=== PATIENT | female | born 1980 | race Caucasian/White ===

== ENCOUNTER 2016-04-02 13:09 | Emergency (ER) | payer SELFPAY ==
[~2016-04-02] VITALS: Ht 157.5 cm; Wt 65.4 kg
[2016-04-02 13:23] VITALS: BP 111/70; PULSE 77; RESP 18; TEMP 99.4; O2SAT 99
[2016-04-02] MEDS ORDERED: SODIUM CHLOR 0.9% 1000 ML INJ 1,000 ML IV SCH (14:24)
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
[2016-04-02] MEDS ORDERED: METOCLOPRAMIDE HCL 10 MG/2 ML VIAL IV PUSH ONE (14:30)
[2016-04-02] MEDS ORDERED: SODIUM CHLORIDE 0.9% FLUSH 5 ML FLUSH IVF PRN (14:30)
[2016-04-02] MEDS ORDERED: ACETAMINOPHEN/HYDROcodone 325 MG/5 MG TAB PO ONE (14:30)
[2016-04-02 14:54] LABS: BLOOD, URINE NEG (NEG); GLUCOSE,URINE NEG (NEG); NITRITE,URINE NEG (NEG); PH, URINE 6.5 (5.0-8.5)
[2016-04-02 14:56] LABS: KETONE, URINE 80 OR GREATER mg/dL (NEG); METHOD OF COLLECTION CLEAN CATCH; URINE COLOR YELLOW (YELLW/STRAW)
[2016-04-02 14:57] LABS: BASOPHIL # 0.2 TH/MM3 (0-0.2); BASOPHIL % 1.4 % (0.0-2.0); EOSINOPHIL # 0.3 TH/MM3 (0-0.4); EOSINOPHIL % 2.3 % (0.0-4.0); HEMATOCRIT 41.5 % (35.0-46.0); HEMO FLAGS DIFF FINAL; LYMPH % 23.1 % (9.0-44.0); LYMPHOCYTE # 2.7 TH/MM3 (1.0-4.8); MEAN CELL VOLUME 93.9 FL (80.0-100.0); MONO % 3.3 % (0.0-8.0); NEUT % 69.9 % (16.0-70.0); PLATELET COUNT 376 TH/MM3 (150-450); RED BLOOD COUNT 4.41 MIL/MM3 (4.00-5.30); RED CELL DISTRIBUTION WIDTH 14.4 % (11.6-17.2); WHITE BLOOD COUNT 11.6 TH/MM3 (4.0-11.0)
[2016-04-02 14:59] LABS: BACTERIA, URINE OCC /hpf; COMMENT (UR) CULT NOT INDICATED; CULTURE IF INDICATED CULT NOT INDICATED; MUCUS URINE FEW /lpf (OCC); SQUAMOUS EPITHELIAL CELL URINE > 8 /hpf (0-5); WBC, URINE 0-2 /hpf (0-5)
[2016-04-02 15:04] LABS: CHLORIDE 107 MEQ/L (98-107); POTASSIUM 3.9 MEQ/L (3.5-5.1); SODIUM (NA) 142 MEQ/L (136-145)
[2016-04-02 15:08] LABS: ANION GAP 7 MEQ/L (5-15); BICARBONATE 28.3 MEQ/L (21.0-32.0); BLOOD UREA NITROGEN 11 MG/DL (7-18)
[2016-04-02 15:11] LABS: ALT (GPT) 9 U/L (10-53); AST (GOT) 10 U/L (15-37); GLOMERULAR FILTRATION RATE 89 ML/MIN (>89)
[2016-04-02 15:13] LABS: TOTAL BILIRUBIN ADULT 0.3 MG/DL (0.2-1.0)
[2016-04-02 15:14] LABS: ALKALINE PHOSPHATASE 64 U/L (45-117)
[2016-04-02] MEDS ORDERED: REGL10TA5 PO (15:31)
[2016-04-02] MEDS ORDERED: HYDR-3533 PO (15:31)
[2016-04-02] MEDS ORDERED: CLIN1CAP5 PO (15:31)
[2016-04-02 15:44] VITALS: BP 136/90
== END 2016-04-02 15:45 | disposition home or self-care (01) ==
LOC: PHED 13:09 → PHEFT 15:45
DX: K04.7 Periapical abscess without sinus (principal); K52.9 Noninfective gastroenteritis and colitis, unspecified; D72.829 Elevated white blood cell count, unspecified; D64.9 Anemia, unspecified; J45.909 Unspecified asthma, uncomplicated; F41.8 Other specified anxiety disorders; F17.210 Nicotine dependence, cigarettes, uncomplicated; F19.10 Other psychoactive substance abuse, uncomplicated
CPT/HCPCS: 80053; 81001; 83690; 84703; 85025; 96361; 96374; 99284; J2765; J7030

== ENCOUNTER 2016-05-16 17:08 | Emergency (ER) | payer SELFPAY ==
[~2016-05-16] VITALS: Ht 157.5 cm; Wt 61.5 kg
[~2016-05-16 17:08] MED LIST: CLIN1CAP5 PO; HYDR-3533 PO; REGL10TA5 PO
[2016-05-16 17:17] VITALS: BP 110/81; PULSE 87; RESP 18; TEMP 98.8; O2SAT 96
[2016-05-16] MEDS ORDERED: DEXAMETHASONE SOD PHOS 20 MG/5 ML VIAL IM ONE (17:45)
[2016-05-16] MEDS ORDERED: AMPICILLIN-SULBACTAM INJ 3 GM VIAL IM ONE (17:45)
[2016-05-16] MEDS ORDERED: HYDROmorphone HCL PF 1 MG/ML VIAL IM ONE (17:45)
[2016-05-16] MEDS ORDERED: AUGM875T PO (18:00)
[2016-05-16] MEDS ORDERED: HYDROmorphone HCL PF 1 MG/ML VIAL IV PUSH ONE (18:00)
[2016-05-16] MEDS ORDERED: AMPICILLIN-SULBACTAM INJ 3 GM in SODIUM CHLORIDE 0.9% INJ 100 ML IV ONE (18:00)
[2016-05-16] MEDS ORDERED: HYDR-3533 PO (18:00)
[2016-05-16] MEDS ORDERED: DEXAMETHASONE SOD PHOS 20 MG/5 ML VIAL IV PUSH ONE (18:00)
[2016-05-16] MEDS ORDERED: NAPR500 PO (18:00)
--- NOTE | 2016-05-16 18:01 | PD ---
HPI Chief Complaint: Oral / Dental Pain or Problem Time Seen by Provider: 17:42 Travel History International Travel<30 days: No Contact w/Intl Traveler<30days: No Traveled to known affect area: No History of Present Illness HPI So 35-year-old woman who presents to the emergency department complaining of severe right sided facial pain and swelling. She's had bad teeth for a while. She recently completed a course of clindamycin of resolution of previous similar symptoms a couple weeks ago. Starting yesterday and into today symptoms recurred with pain and swelling on the right side of face, some chills , worsening Today. Pain with swallowing. No other complaints. History Past Medical History Medical History: Denies Significant Hx Tetanus Vaccination: < 5 Years LMP: 05/15/16 : 2 Para: 1 Social History Alcohol Use: Yes (OCCASIONAL) Tobacco Use: Yes (AZUCENA 1 PACK A DAY ) Allergies-Medications (Allergen,Severity, Reaction): Coded Allergies: Prozac (Verified Allergy, Severe, HIVES, 05/16/16) Zofran (Verified Allergy, Severe, 05/16/16) Ibuprofen (Verified Allergy, Mild, Rash, 05/16/16) Reported Meds & Prescriptions Reported Meds & Active Scripts Active Lortab (Hydrocodone-Acetaminophen) 5-325 Mg Tab 1 Tab PO Q6H PRN Reglan (Metoclopramide HCl) 10 Mg Tab 10 Mg PO TIDAC PRN 3 Days Review of Systems Except as stated in HPI: all other systems reviewed are Neg Physical Exam Narrative Gen.: Well-appearing 35 year-old woman, uncomfortable but nontoxic HEENT: Obvious facial swelling along the right mandible. She has exquisite tenderness, and pain with palpation. There is no obvious fluctuance. There is no purulent drainage. There is obvious decay of the second molar on the bottom right. There is tenderness to percussion. There is no obvious fullness in the floor the mouth or evidence of submental fullness or induration. Data Data Last Documented VS Vital Signs Date Time Temp Pulse Resp B/P Pulse Ox O2 Delivery O2 Flow Rate FiO2 05/16/16 17:17 98.8 87 18 110/81 96 Orders Ampicillin-Sulbactam Inj (Unasyn Inj) (05/16/16 17:45) Hydromorphone Pf Inj (Dilaudid Pf Inj) (05/16/16 17:45) Dexamethasone Inj (Decadron Inj) (05/16/16 17:45) MDM Medical Decision Making Medical Screen Exam Complete: Yes Emergency Medical Condition: Yes Differential Diagnosis Facial saline's, odontogenic infection, abscess, ostomy myelitis, other Narrative Course Medical decision making Is a 34 year-old woman was evidence of odontogenic infection, we'll give IV antibiotics, steroids, pain control, we'll need to see a dentist for tooth extraction. If symptoms are not improving she'll need CT imaging. She is agreeable to returning for any worsening symptoms. Continue medications. Diagnosis Primary Impression: Facial cellulitis Additional Instructions: Take Naprosyn as prescribed. Take Lortab as prescribed as needed for pain. Take Augmentin as prescribed. Follow-up with a dentist for further evaluation of dental extraction. Med/Other Pt SpecificInfo: Prescription(s) given Scripts Naproxen (Naprosyn)500 Mg Iss114 Mg PO BID PRN (PAIN SCALE 1 TO 10) #20 TAB Prov:Pelon Fernandes MD 05/16/16 Hydrocodone-Acetaminophen (Lortab)5-325 Mg Tab1-2 Tab PO Q6H PRN (PAIN) #20 TAB Prov:Pelon Fernandes MD 05/16/16 Amoxicillin-Clavulanate (Augmentin)875-125 mg Szl685 Mg PO BID 7 Days not for use in CrCl <30 ml/min. Prov:Pelon Fernandes MD 05/16/16 Disposition: 01 DISCHARGE HOME Condition: Stable Pelon Fernandes MD May 16, 2016 18:01
[2016-05-16] MEDS ORDERED: PROMETHAZINE INJ 25 MG/ML VIAL IM ONE (18:30)
[2016-05-16] MEDS ORDERED: METOCLOPRAMIDE HCL 10 MG/2 ML VIAL IV PUSH ONE (18:30)
[2016-05-16 18:32] VITALS: RESP 18
== END 2016-05-16 19:44 | disposition home or self-care (01) ==
LOC: PHEFT 17:08
DX: L03.211 Cellulitis of face (principal); F17.210 Nicotine dependence, cigarettes, uncomplicated
CPT/HCPCS: 96365; 96375; 99282; J0295; J1100; J1170; J2765

== ENCOUNTER 2016-05-31 17:38 | Emergency (ER) | payer OTHER ==
[~2016-05-31] VITALS: Ht 154.9 cm; Wt 61.5 kg
[~2016-05-31 17:38] MED LIST changes: +AUGM875T PO; -CLIN1CAP5 PO; +NAPR500 PO
[2016-05-31 17:55] VITALS: BP 135/89; PULSE 100; RESP 18; TEMP 98.4; O2SAT 100
[2016-05-31] MEDS ORDERED: ACETAMINOPHEN/HYDROcodone 325 MG/5 MG TAB PO ONE (18:00)
[2016-05-31] MEDS ORDERED: LIDOCAINE 1%/EPINEPHrine 1:100,000 SOLN 20 ML VIAL INFIL ONE (18:00)
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
--- NOTE | 2016-05-31 19:15 | PD ---
Physical Exam Date Seen by Provider: May 31, 2016 Time Seen by Provider: 19:13 Narrative accepted in transfer of care from Dr Fernandes; GCS 15; patient ambulatory to the restroom. GENERAL: Well-developed well-nourished female in no acute distress no respiratory distress; GCS 15 SKIN: Warm and dry. HEAD: Normocephalic. Posterior occiput scalp laceration s/p repair EYES: No scleral icterus. No injection or drainage. NECK: Supple, trachea midline. No JVD or lymphadenopathy. CARDIOVASCULAR: Regular rate and rhythm without murmurs, gallops, or rubs. RESPIRATORY: Breath sounds equal bilaterally. No accessory muscle use. GASTROINTESTINAL: Abdomen soft, mild tenderness to palpation without guarding or rebound ecchymosis or abrasion or laceration, nondistended. MUSCULOSKELETAL: No cyanosis, or edema. BACK: Nontender without obvious deformity. No CVA tenderness. Data Data Last Documented VS Vital Signs Date Time Temp Pulse Resp B/P Pulse Ox O2 Delivery O2 Flow Rate FiO2 05/31/16 20:39 74 18 116/74 97 Room Air 05/31/16 17:[address] Brain W/O Iv Contrast(Rout) (05/31/16 ) Wrist, Complete ([id number]) (05/31/16 ) Spine, Lumbar Comp W/Obliq (05/31/16 ) Knee, Complete (4vws) (05/31/16 ) Acetamin-Hydrocod 325-5 Mg (Locke 5-325 (05/31/16 18:00) Lidocai-Epi 1%-1:100,000 Inj (Xylocaine- (05/31/16 18:00) Complete Blood Count With Diff (05/31/16 19:49) Basic Metabolic Panel (Bmp) (05/31/16 19:49) Ua With No Microscopy (05/31/16 19:49) Ct Abd/Pel W Iv Contrast(Rout) (05/31/16 ) Chest, Single Ap (05/31/16 ) Splint Or Brace Apply/Monitor (05/31/16 19:49) Support Splint (05/31/16 19:49) Cockup Hand Splint (05/31/16 ) Immobilizer Knee 20 Inch (05/31/16 ) Iohexol 350 Inj (Omnipaque 350 Inj) (05/31/16 21:28) Ed Urine Pregnancytest Poc (05/31/16 21:28) Morphine Inj (Morphine Inj) (05/31/16 21:30) Ns (Bolus) Inj (05/31/16 21:30) Metoclopramide Inj (Reglan Inj) (05/31/16 21:30) Labs Laboratory Tests Test 05/31/16 05/31/16 19:55 20:02 White Blood Count 20.0 TH/MM3 Red Blood Count 3.75 MIL/MM3 Hemoglobin 11.9 GM/DL Hematocrit 35.4 % Mean Corpuscular Volume 94.3 FL Mean Corpuscular Hemoglobin 31.7 PG Mean Corpuscular Hemoglobin 33.6 % Concent Red Cell Distribution Width 15.1 % Platelet Count 367 TH/MM3 Mean Platelet Volume 8.1 FL Neutrophils (%) (Auto) 80.6 % Lymphocytes (%) (Auto) 14.4 % Monocytes (%) (Auto) 2.2 % Eosinophils (%) (Auto) 2.1 % Basophils (%) (Auto) 0.7 % Neutrophils # (Auto) 16.2 TH/MM3 Lymphocytes # (Auto) 2.9 TH/MM3 Monocytes # (Auto) 0.4 TH/MM3 Eosinophils # (Auto) 0.4 TH/MM3 Basophils # (Auto) 0.1 TH/MM3 CBC Comment AUTO DIFF Differential Comment AUTO DIFF CONFIRMED Platelet Estimate NORMAL Platelet Morphology Comment NORMAL Sodium Level 143 MEQ/L Potassium Level 3.8 MEQ/L Chloride Level 109 MEQ/L Carbon Dioxide Level 24.6 MEQ/L Anion Gap 9 MEQ/L Blood Urea Nitrogen 9 MG/DL Creatinine 0.70 MG/DL Estimat Glomerular Filtration 96 ML/MIN Rate Random Glucose 77 MG/DL Calcium Level 7.9 MG/DL Urine Color STRAW Urine Turbidity CLEAR Urine pH 6.0 Urine Specific Lincoln 1.010 Urine Protein NEG mg/dL Urine Glucose (UA) NEG mg/dL Urine Ketones NEG mg/dL Urine Occult Blood NEG Urine Nitrite NEG Urine Bilirubin NEG Urine Leukocyte Esterase NEG [facility] Medical Record Reviewed: Yes Supervised Visit with ANNIE: No Interpretation(s) CT brain w/o contrast: FINDINGS: CEREBRUM: The ventricles are normal for age. No evidence of midline shift, mass lesion, hemorrhage or acute infarction. No extra-axial fluid collections are seen. POSTERIOR FOSSA: The cerebellum and brainstem are intact. The 4th ventricle is midline. The cerebellopontine angle is unremarkable. EXTRACRANIAL: The visualized portion of the orbits is intact. SKULL: The calvaria is intact. No evidence of skull fracture. There is soft tissue swelling over the right parietal bone with surgical zbigniew. CONCLUSION: 1. Soft tissue swelling over the right frontal bone with surgical zbigniew. 2. No acute hemorrhage or mass effect. Merlin Rodriguez MD on May 31, 2016 at 19:07 Board Certified Radiologist. This report was verified electronically. Last Impressions Wrist X-Ray 05/31/16 0000 Signed Impressions: Service Date/Time: Tuesday, May 31, 2016 18:24 - CONCLUSION: Unremarkable examination of the left wrist. Merlin Rodriguez MD Lumbar Spine X-Ray 05/31/16 0000 Signed Impressions: Service Date/Time: Tuesday, May 31, 2016 18:10 - CONCLUSION: 1. Mild scoliosis. 2. No underlying bony abnormality. Merlin Rodriguez MD Knee X-Ray 05/31/16 0000 Signed Impressions: Service Date/Time: Tuesday, May 31, 2016 18:20 - CONCLUSION: Negative trauma study. Merlin Rodriguez MD Head CT 05/31/16 0000 Signed Impressions: Service Date/Time: Tuesday, May 31, 2016 18:51 - CONCLUSION: 1. Soft tissue swelling over the right frontal bone with surgical zbigniew. 2. No acute hemorrhage or mass effect. Merlin Rodriguez MD Chest X-Ray 05/31/16 0000 Signed Impressions: Service Date/Time: Tuesday, May 31, 2016 20:05 - CONCLUSION: No acute disease. Merlin Rodriguez MD Abdomen/Pelvis CT 05/31/16 0000 Signed Impressions: Service Date/Time: Tuesday, May 31, 2016 20:39 - CONCLUSION: 1. No evidence of acute visceral injury. 2. Status post cholecystectomy. 3. Small amount of fluid in the cul-de-sac which is a nonspecific finding in a female patient of this age. Merlin Rodriguez MD CBC & BMP Diagram 05/31/16 19:55 Vital Signs Date Time Temp Pulse Resp B/P Pulse Ox O2 Delivery O2 Flow Rate FiO2 05/31/16 20:39 74 18 116/74 97 Room Air 05/31/16 19:23 73 98 Room Air 05/31/16 19:23 73 18 94/67 98 Room Air 05/31/16 17:55 98.4 100 18 135/89 100 Room Air 05/31/16 17:55 Room Air Differential Diagnosis accepted in transfer of care from Dr Fernandes; please refer to his dictation Narrative Course accepted in transfer of care from Dr Fernandes for follow up of pending imaging studies and patient disposition; patient ambulatory to the restroom @ 7:35 informed by the patient's nurse after patient returned from the restroom SBP was 90 mmHg; BP: has returned into normal range with otherwise VS on exam patient has reproducible abdominal tenderness without guarding or rebound. Patient administered iv f bolus basic labs and ct abd/pel w/iv contrast ordered At 21:32 PM patient complains of increased generalized pain administered IV fluid bolus as previously mentioned along with her feet sulfate 3 mg IV and Reglan 10 mg IV in view of known allergy to Zofran and previous tolerance of Reglan; imaging studies revealed no acute abnormality; lab work is remarkable for leukocytosis consistent with stress demargination and hydration status. Patient is aware of need for close follow-up with primary care provider and recommendation for 2 day wound check and suture/staple removal in 5 days; patient also encouraged to monitor temperature every 4 hours with thermometer and should she develop fever or any type of drainage at one site redness tenderness or have any concerns should be reassessed. Patient is otherwise stable for outpatient management. Diagnosis Primary Impression: Laceration of head Qualified Code: S01.91XA - Laceration of head without foreign body, unspecified part of head, initial encounter Additional Impressions: Knee pain, acute Qualified Code: M25.561 - Acute pain of right knee Back pain Qualified Code: M54.5 - Acute midline low back pain without sciatica Minor closed head injury Referrals: Orthopaedic Surgeon call for appointment Primary Care Physician 3 days Patient Instructions: Narcotic given in the ED, General Instructions Additional Instruction: Use acetaminophen or Naprosyn as needed for body aches. You will likely be more sore tomorrow. You may have soreness in your neck, back , arms or legs. You should not have any chest pain, trouble breathing, abdominal pain, worsening headache, numbness or tingling, or difficulty walking. If any of these other symptoms develop he should return to the emergency Department immediately. Follow-up with her primary physician if you're not completely well in 5-7 days. Keep wound clean and dry. Do not wet for 24 hours. After 24 hours and clean the wound gently with soap and water. Wash wound normally when he shampoo your hair. Do not soak wound. No swimming, hot tubs, or allowing wound to get too wet. Apply antibiotic ointment to wound twice daily. Return to the emergency department for any worsening pain, swelling, redness, significant bleeding, or any other new or worsening symptoms. Follow head injury precautions 24 hours Apply as needed ice intermittently for first 12-24 hours to areas of soft tissue swelling and discomfort Disposition: 01 DISCHARGE HOME Condition: Stable Mendy Guerra MD May 31, 2016 19:15
[2016-05-31 19:23] VITALS: BP 94/67; PULSE 73; RESP 18; O2SAT 98
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
[2016-05-31 20:08] LABS: AUTOMATED NEUTROPHIL # 16.2 TH/MM3 (1.8-7.7); BASOPHIL # 0.1 TH/MM3 (0-0.2); BASOPHIL % 0.7 % (0.0-2.0); EOSINOPHIL # 0.4 TH/MM3 (0-0.4); EOSINOPHIL % 2.1 % (0.0-4.0); HEMATOCRIT 35.4 % (35.0-46.0); LYMPH % 14.4 % (9.0-44.0); LYMPHOCYTE # 2.9 TH/MM3 (1.0-4.8); MEAN CELL VOLUME 94.3 FL (80.0-100.0); MEAN CORPUSCULAR HEMOGLOBIN 31.7 PG (27.0-34.0); MEAN CORPUSCULAR HGB CONC 33.6 % (32.0-36.0); MONO % 2.2 % (0.0-8.0); NEUT % 80.6 % (16.0-70.0); PLATELET COUNT 367 TH/MM3 (150-450); RED BLOOD COUNT 3.75 MIL/MM3 (4.00-5.30); RED CELL DISTRIBUTION WIDTH 15.1 % (11.6-17.2)
[2016-05-31 20:10] LABS: HEMO FLAGS AUTO DIFF
[2016-05-31 20:13] LABS: BLOOD, URINE NEG (NEG); GLUCOSE,URINE NEG (NEG); KETONE, URINE NEG (NEG); NITRITE,URINE NEG (NEG)
[2016-05-31 20:15] LABS: URINE COLOR STRAW (YELLW/STRAW)
[2016-05-31 20:20] LABS: BICARBONATE 24.6 MEQ/L (21.0-32.0)
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
[2016-05-31 20:29] LABS: POTASSIUM 3.8 MEQ/L (3.5-5.1)
[2016-05-31 20:30] LABS: PLATELET ESTIMATE SMEAR NORMAL (NORMAL); PLATELET MORPHOLOGY NORMAL (NORMAL); SCAN/DIFF AUTO DIFF CONFIRMED
[2016-05-31 20:39] VITALS: BP 116/74; PULSE 74; RESP 18; O2SAT 97
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
[2016-05-31] MEDS ORDERED: IOHEXOL 350 MG/ML 10 ML VIAL (for RAD DIAG) IV ONE (21:28)
[2016-05-31] MEDS ORDERED: SODIUM CHLORID 0.9% 500 ML INJ 500 ML IV ONE (21:30)
[2016-05-31] MEDS ORDERED: MORPHINE SULFATE 4 MG/ML INJ IV PUSH ONE (21:30)
[2016-05-31] MEDS ORDERED: METOCLOPRAMIDE HCL 10 MG/2 ML VIAL IV PUSH ONE (21:30)
[2016-05-31 21:35] VITALS: BP 118/88; PULSE 88; RESP 20; O2SAT 94
[2016-05-31 22:31] VITALS: BP 119/71
== END 2016-05-31 22:36 | disposition home or self-care (01) ==
LOC: PHED 17:38
DX: S01.01XA Laceration without foreign body of scalp, initial encounter (principal); M25.561 Pain in right knee; M54.5 Low back pain; S00.03XA Contusion of scalp, initial encounter; S09.90XA Unspecified injury of head, initial encounter; V09.29XA Pedestrian injured in traffic accident involving other motor vehicles, initial encounter; Y93.01 Activity, walking, marching and hiking; Y92.410 Unspecified street and highway as the place of occurrence of the external cause
CPT/HCPCS: 12002; 70450; 71010; 72110; 73110; 73564; 74177; 80048; 81003; 84703; 85025; 96374; 96375; 99284; J2270; J2765; J7040; L1830; L3908; Q9967

== ENCOUNTER 2016-06-07 17:15 | Emergency (ER) | payer OTHER ==
[~2016-06-07] VITALS: Ht 157.5 cm; Wt 60.0 kg
[2016-06-07 17:19] VITALS: BP 104/68; PULSE 90; RESP 16; TEMP 98.6; O2SAT 99
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
== END 2016-06-07 17:55 | disposition home or self-care (01) ==
LOC: PHEFT 17:15
DX: S01.01XD Laceration without foreign body of scalp, subsequent encounter (principal); Z48.02 Encounter for removal of sutures; V09.20XD Pedestrian injured in traffic accident involving unspecified motor vehicles, subsequent encounter
CPT/HCPCS: 99281

== ENCOUNTER 2016-09-16 00:49 | Emergency (ER) | payer SELFPAY ==
[~2016-09-16] VITALS: Ht 157.5 cm; Wt 53.6 kg
[2016-09-16 00:55] VITALS: BP 119/86; PULSE 102; RESP 20; TEMP 98.7; O2SAT 99
[2016-09-16] MEDS ORDERED: GABA600T PO (01:10)
== END 2016-09-16 01:30 | disposition left against medical advice (07) ==
LOC: PHED 00:49
DX: K13.79 Other lesions of oral mucosa (principal)
CPT/HCPCS: 99281

== ENCOUNTER 2016-11-10 22:37 | Emergency (ER) | payer MEDICAID ==
[~2016-11-10] VITALS: Ht 157.5 cm; Wt 52.3 kg
[~2016-11-10 22:37] MED LIST changes: -AUGM875T PO; +GABA600T PO; -NAPR500 PO; -REGL10TA5 PO
[2016-11-10 22:44] VITALS: BP 130/86; PULSE 92; RESP 18; TEMP 99; O2SAT 97
[2016-11-10] MEDS ORDERED: SODIUM CHLOR 0.9% 1000 ML INJ 1,000 ML IV SCH (22:59)
[2016-11-10] MEDS ORDERED: SODIUM CHLORIDE 0.9% FLUSH 10 ML FLUSH IV FLUSH PRN (23:00)
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
[2016-11-10 23:05] VITALS: BP 115/71; PULSE 87; RESP 20; O2SAT 98
[2016-11-10 23:14] LABS: BLOOD, URINE NEG (NEG); GLUCOSE,URINE NEG (NEG); KETONE, URINE TRACE mg/dL (NEG); NITRITE,URINE NEG (NEG); PH, URINE 5.5 (5.0-8.5)
[2016-11-10] MEDS ORDERED: LIDOCAINE 1%/EPINEPHrine 1:100,000 SOLN 20 ML VIAL INFIL ONE (23:15)
[2016-11-10 23:22] LABS: AUTOMATED NEUTROPHIL # 6.3 TH/MM3 (1.8-7.7); BASOPHIL # 0.2 TH/MM3 (0-0.2); EOSINOPHIL # 0.3 TH/MM3 (0-0.4); EOSINOPHIL % 2.5 % (0.0-4.0); HEMATOCRIT 38.9 % (35.0-46.0); HEMO FLAGS DIFF FINAL; LYMPH % 35.6 % (9.0-44.0); LYMPHOCYTE # 4.1 TH/MM3 (1.0-4.8); MEAN CELL VOLUME 92.7 FL (80.0-100.0); MEAN CORPUSCULAR HGB CONC 33.5 % (32.0-36.0); MONO % 4.5 % (0.0-8.0); NEUT % 55.4 % (16.0-70.0); PLATELET COUNT 340 TH/MM3 (150-450); RED CELL DISTRIBUTION WIDTH 14.5 % (11.6-17.2); WHITE BLOOD COUNT 11.4 TH/MM3 (4.0-11.0)
[2016-11-10 23:25] LABS: URINE COLOR AMBER (YELLW/STRAW)
[2016-11-10 23:26] LABS: MUCUS URINE MOD /lpf (OCC)
[2016-11-10 23:28] LABS: BACTERIA, URINE OCC /hpf
[2016-11-10 23:29] LABS: COMMENT (UR) CULT NOT INDICATED; CULTURE IF INDICATED CULT NOT INDICATED
[2016-11-10] MEDS ORDERED: IOHEXOL 350 MG/ML 10 ML VIAL (for RAD DIAG) IVCONTRAST ONE (23:30)
[2016-11-10 23:33] LABS: CHLORIDE 107 MEQ/L (98-107); POTASSIUM 3.1 MEQ/L (3.5-5.1); SODIUM (NA) 138 MEQ/L (136-145)
[2016-11-10 23:37] LABS: ANION GAP 7 MEQ/L (5-15); BICARBONATE 23.9 MEQ/L (21.0-32.0); BLOOD UREA NITROGEN 16 MG/DL (7-18)
[2016-11-10 23:39] LABS: APTT (PATIENT) 27.7 SEC (24.3-30.1); INTERNATIONAL NORMALIZED RATIO 0.9 RATIO; PROTHROMBIN TIME - PATIENT 10.2 SEC (9.8-11.6)
[2016-11-10 23:40] LABS: ALT (GPT) 14 U/L (10-53); AST (GOT) 12 U/L (15-37); GLOMERULAR FILTRATION RATE 93 ML/MIN (>89)
[2016-11-10 23:42] LABS: TOTAL BILIRUBIN ADULT 0.4 MG/DL (0.2-1.0)
[2016-11-10 23:43] LABS: ALKALINE PHOSPHATASE 69 U/L (45-117)
[2016-11-10 23:44] VITALS: BP 114/88; PULSE 84; RESP 20; O2SAT 98
[2016-11-11] MEDS ORDERED: POTASSIUM CHLORIDE 20 MEQ CONTROLLED RELEASE TAB PO ONE
[2016-11-11] MEDS ORDERED: FLUCONAZOLE 100 MG TAB PO ONE
[2016-11-11] MEDS ORDERED: MORPHINE SULFATE 4 MG/ML INJ IV PUSH ONE
[2016-11-11 00:32] VITALS: BP 106/82; PULSE 88; RESP 20; O2SAT 99
--- NOTE | 2016-11-11 00:33 | RADRPT ---
EXAM DATE/TIME: 11/10/2016 23:42 [facility] COMPARISON: CT ABDOMEN & PELVIS W CONTRAST, May 31, 2016, 20:39. INDICATIONS : Right flank pain. IV CONTRAST: 100 cc Omnipaque 350 (iohexol) IV ORAL CONTRAST: No oral contrast ingested. RADIATION DOSE: 4.82 CTDIvol (mGy) MEDICAL HISTORY : None SURGICAL HISTORY : Appendectomy. section.Cholecystectomy. ENCOUNTER: Initial ACUITY: 2 days PAIN SCALE: 8/10 LOCATION: Right flank TECHNIQUE: Volumetric scanning of the abdomen and pelvis was performed. Using automated exposure control and ad justment of the mA and/or kV according to patient size, radiation dose was kept as low as reasonably achievable to obtain optimal diagnostic quality images. DICOM format image data is available electro nically for review and comparison. FINDINGS: LOWER LUNGS: The visualized lower lungs are clear. LIVER: Homogeneous density without lesion. There is no dilation of the biliary tree. There is been prior c holecystectomy with clips in the gallbladder fossa. SPLEEN: Normal size without lesion. PANCREAS: Within normal limits. KIDNEYS: Right kidney has stable lobulated contour with areas of scarring and is slightly smaller than the lef t kidney. There is no mass, stone or hydronephrosis. There are small left renal sinus cysts, stable from the prior exam. ADRENAL GLANDS: Within normal limits. VASCULAR: There is no aortic aneurysm. BOWEL/MESENTERY: The stomach, small bowel, and colon demonstrate no acute abnormality. There is no free intraperitone al air or fluid. Staple line at the base of the cecum is related to prior appendectomy. ABDOMINAL WALL: Within normal limits. RETROPERITONEUM: There is no lymphadenopathy. BLADDER: No wall thickening or mass. REPRODUCTIVE: Within normal limits. There is a rim-enhancing left corpus luteal cyst. INGUINAL: There is no lymphadenopathy or hernia. MUSCULOSKELETAL: No acute abnormality. CONCLUSION: 1. No acute finding is identified within the abdomen or pelvis. 2. Stable right renal scarring. Gary Mcgill MD on November 11, 2016 at 0:27 Board Certified Radiologist. This report was verified electronically.
[2016-11-11 00:54] VITALS: RESP 20
[2016-11-11] MEDS ORDERED: PENI500T PO (01:38)
[2016-11-11] MEDS ORDERED: NORC5TAB PO (01:38)
[2016-11-11] MEDS ORDERED: DIFL150T PO (01:39)
--- NOTE | 2016-11-11 01:39 | PD ---
Physical Exam Narrative Patient was seen by ED physician and signed out to me. Data Data Last Documented VS Vital Signs Date Time Temp Pulse Resp B/P (MAP) Pulse Ox O2 Delivery O2 Flow Rate FiO2 11/11/16 00:54 20 11/10/16 23:05 87 115/71 (86) 98 11/10/16 22:44 99.0 Orders Orders Complete Blood Count With Diff (11/10/16 22:59) Comprehensive Metabolic Panel (11/10/16 22:59) Lipase (11/10/16 22:59) Prothrombin Time / Inr (Pt) (11/10/16 22:59) Act Partial Throm Time (Ptt) (11/10/16 22:59) Urinalysis - C+S If Indicated (11/10/16 22:59) Ct Abd/Pel W Iv Contrast(Rout) (11/10/16 22:59) Iv Access Insert/Monitor (11/10/16 22:59) Ecg Monitoring (11/10/16 22:59) Oximetry (11/10/16 22:59) Sodium Chlor 0.9% 1000 Ml Inj (Ns 1000 M (11/10/16 22:59) Sodium Chloride 0.9% Flush (Ns Flush) (11/10/16 23:00) Ed Poc Ultrasound (11/10/16 22:59) Lidocai-Epi 1%-1:100,000 Inj (Xylocaine- (11/10/16 23:15) Fluconazole (Diflucan) (11/11/16 00:00) Morphine Inj (Morphine Inj) (11/11/16 00:00) Potassium Chloride (Kcl) (11/11/16 00:00) Iohexol 350 Inj (Omnipaque 350 Inj) (11/10/16 23:30) Labs Laboratory Tests Test 11/10/16 23:00 11/10/16 23:10 Urine Color GI Urine Turbidity SLIGHT Urine pH 5.5 Urine Specific [place] 1.027 Urine Protein TRACE mg/dL Urine Glucose (UA) NEG mg/dL Urine Ketones TRACE mg/dL Urine Occult Blood NEG Urine Nitrite NEG Urine Bilirubin NEG Urine Leukocyte Esterase TRACE Urine WBC 3-5 /hpf Urine Squamous Epithelial Cells 6-8 /hpf Urine Bacteria OCC /hpf Urine Mucus MOD /lpf Urine Yeast with Hyphae OCC Urine Yeast (Budding) OCC Microscopic Urinalysis Comment CULT NOT INDICATED White Blood Count 11.4 TH/MM3 Red Blood Count 4.20 MIL/MM3 Hemoglobin 13.0 GM/DL Hematocrit 38.9 % Mean Corpuscular Volume 92.7 FL Mean Corpuscular Hemoglobin 31.0 PG Mean Corpuscular Hemoglobin Concent 33.5 % Red Cell Distribution Width 14.5 % Platelet Count 340 TH/MM3 Mean Platelet Volume 8.0 FL Neutrophils (%) (Auto) 55.4 % Lymphocytes (%) (Auto) 35.6 % Monocytes (%) (Auto) 4.5 % Eosinophils (%) (Auto) 2.5 % Basophils (%) (Auto) 2.0 % Neutrophils # (Auto) 6.3 TH/MM3 Lymphocytes # (Auto) 4.1 TH/MM3 Monocytes # (Auto) 0.5 TH/MM3 Eosinophils # (Auto) 0.3 TH/MM3 Basophils # (Auto) 0.2 TH/MM3 CBC Comment DIFF FINAL Differential Comment Prothrombin Time 10.2 SEC Prothromb Time International Ratio 0.9 RATIO Activated Partial Thromboplast Time 27.7 SEC Blood Urea Nitrogen 16 MG/DL Creatinine 0.72 MG/DL Random Glucose 96 MG/DL Total Protein 7.0 GM/DL Albumin 3.5 GM/DL Calcium Level 8.1 MG/DL Alkaline Phosphatase 69 U/L Aspartate Amino Transf (AST/SGOT) 12 U/L Alanine Aminotransferase (ALT/SGPT) 14 U/L Total Bilirubin 0.4 MG/DL Sodium Level 138 MEQ/L Potassium Level 3.1 MEQ/L Chloride Level 107 MEQ/L Carbon Dioxide Level 23.9 MEQ/L Anion Gap 7 MEQ/L Estimat Glomerular Filtration Rate 93 ML/MIN Lipase 143 U/L [facility] Supervised Visit with ANNIE: No Interpretation(s) Last Impressions Abdomen/Pelvis CT 11/10/16 [id number] Signed Impressions: Service Date/Time: Thursday, November 10, 2016 23:42 - CONCLUSION: 1. No acute finding is identified within the abdomen or pelvis. 2. Stable right renal scarring. Gary Mcgill MD 1:34 AM. CBC within normal limit. Potassium 3.1. UA positive for bacteria and yeast. Diagnosis Primary Impression: Flank pain Additional Impressions: Candiduria Dental infection Hypokalemia Patient Instructions: Narcotic given in the ED, General Instructions Additional Instruction: Take medications as directed. Follow-up with personal physician and dentist. Return if worse. Med/Other Pt SpecificInfo: Prescription(s) given Scripts Fluconazole (Diflucan) 150 Mg Tab 150 MG PO ONCE for Infection, #1 TAB 0 Refills Prov: Jose Martinez MD 11/11/16 Hydrocodone-Acetaminophen ([place]) 5-325 mg Tab 1 TAB PO Q6H Y for PAIN, #20 TAB 0 Refills Prov: Jose Martinez MD 11/11/16 Penicillin V Potassium (Penicillin V Potassium) 500 Mg Tab 500 MG PO Q6H for Infection, #40 TAB 0 Refills Prov: Jose Martinez MD 11/11/16 Disposition: 01 DISCHARGE HOME Condition: Stable Jose Martinez MD Nov 11, 2016 01:39
[2016-11-11 02:06] VITALS: BP 110/77
== END 2016-11-11 02:13 | disposition home or self-care (01) ==
LOC: PHED 22:37
DX: B37.49 Other urogenital candidiasis (principal); E87.6 Hypokalemia; F17.210 Nicotine dependence, cigarettes, uncomplicated; D64.9 Anemia, unspecified; M19.90 Unspecified osteoarthritis, unspecified site; J45.909 Unspecified asthma, uncomplicated
CPT/HCPCS: 74177; 80053; 81001; 83690; 85025; 85610; 85730; 96361; 96374; 99285; J2270; J7030; Q9967

== ENCOUNTER 2016-11-21 10:25 | Emergency (ER) | payer MEDICAID ==
[~2016-11-21] VITALS: Ht 154.9 cm; Wt 56.0 kg
[~2016-11-21 10:25] MED LIST changes: +DIFL150T PO; +NORC5TAB PO; +PENI500T PO
[2016-11-21 10:33] VITALS: BP 133/75; PULSE 72; RESP 16; TEMP 97.8; O2SAT 99
[2016-11-21] MEDS ORDERED: HYDR-3534 PO (10:50)
[2016-11-21] MEDS ORDERED: BUPIVACAINE HCL PF 0.25% 10 ML VIAL INFIL ONE (11:00)
[2016-11-21] MEDS ORDERED: BUPIVACAINE HCL PF 0.25% 30 ML VIAL ONE (11:15)
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
[2016-11-21] MEDS ORDERED: ACETAMINOPHEN/HYDROcodone 325 MG/5 MG TAB PO ONE (11:45)
[2016-11-21] MEDS ORDERED: HYDR-3533 PO (12:30)
[2016-11-21 12:31] VITALS: RESP 16
== END 2016-11-21 12:39 | disposition home or self-care (01) ==
LOC: PHED 10:25
DX: K08.89 Other specified disorders of teeth and supporting structures (principal); J45.909 Unspecified asthma, uncomplicated; D64.9 Anemia, unspecified
CPT/HCPCS: 64400

== ENCOUNTER 2016-11-24 16:25 | Emergency (ER) | payer MEDICAID ==
[~2016-11-24] VITALS: Ht 154.9 cm; Wt 57.0 kg
[~2016-11-24 16:25] MED LIST changes: +HYDR-3534 PO
[2016-11-24 16:42] VITALS: BP 123/68; PULSE 87; RESP 16; TEMP 98.6; O2SAT 100
[2016-11-24] MEDS ORDERED: GABA600T PO (16:49)
[2016-11-24] MEDS ORDERED: MAGICADU2 SWISH-SWAL (16:51)
[2016-11-24] MEDS ORDERED: HYDR-3533 PO (16:51)
[2016-11-24] MEDS ORDERED: CLIN1CAP5 PO (16:51)
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
[2016-11-24] MEDS ORDERED: CLINDAMYCIN PHOS 600 MG/4 ML VIAL IM ONE (17:00)
[2016-11-24] MEDS ORDERED: ACETAMINOPHEN/HYDROcodone 325 MG/5 MG TAB PO ONE (17:00)
== END 2016-11-24 17:30 | disposition home or self-care (01) ==
LOC: PHEFT 16:25
DX: K04.7 Periapical abscess without sinus (principal); F17.200 Nicotine dependence, unspecified, uncomplicated
CPT/HCPCS: 96372

== ENCOUNTER 2017-02-15 21:44 | Emergency (ER) | payer MEDICAID ==
[~2017-02-15 21:44] MED LIST changes: +CLIN150C14 PO; -DIFL150T PO; -HYDR-3534 PO; +MAGICADU2 SWISH-SWAL; -NORC5TAB PO; -PENI500T PO
[2017-02-15 21:55] VITALS: BP 114/67; PULSE 88; RESP 20; TEMP 97.7; O2SAT 98
[2017-02-15] MEDS ORDERED: CLIN150C14 PO (23:52)
[2017-02-16] MEDS ORDERED: CLIN300C5 PO (01:02)
[2017-02-16] MEDS ORDERED: AMOX875T PO (01:02)
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
[2017-02-16] MEDS ORDERED: CLINDAMYCIN 150 MG CAP PO ONE (01:15)
[2017-02-16] MEDS ORDERED: AMOXICILLIN 875 MG TAB PO ONE (01:15)
[2017-02-16 01:20] VITALS: BP 112/68; TEMP 97.8
== END 2017-02-16 01:25 | disposition home or self-care (01) ==
LOC: PHED 21:44
DX: K04.7 Periapical abscess without sinus (principal); F17.200 Nicotine dependence, unspecified, uncomplicated
CPT/HCPCS: 99283